=== PATIENT | male | born 1965 | race Caucasian/White ===

== ENCOUNTER 2020-01-23 15:20 | Emergency (ER) | payer OTHER, SELFPAY ==
--- NOTE | 2020-01-23 15:29 | ED.PSYCH ---
HPI - Psych General Chief Complaint: Psychiatric Symptoms <Henrique Pérez MD - Last Filed: 01/27/20 18:53> Stated Complaint: PSYCH <Henrique Pérez MD - Last Filed: 01/27/20 18:53> Time Seen by Provider: 01/23/20 15:22 <Henrique Pérez MD - Last Filed: 01/27/20 18:53> History of Present Illness HPI Narrative: Stopped by police for erratic driving. When they pulled him over he was behaving strangely and asked them to take him to [facility]. They thought that he needed to come in for a psychiatric evaluation. On my evaluation he is vague and withdrawn. When asked about complaints he says only life . denies any physical complaints. Will no answer about suicidal thoughts. <Henrique Pérez MD - Last Filed: 01/27/20 18:53> Related Data Home Medications: Home Medications Medication Instructions Recorded Confirmed No Home Medications 01/23/20 01/23/20 <Henrique Pérez MD - Last Filed: 01/27/20 18:53> Allergies/Adverse Reactions: Allergies Allergy/AdvReac Type Severity Reaction Status Date / Time No Known Allergies Allergy Verified 01/23/20 15:30 <Henrique Pérez MD - Last Filed: 01/27/20 18:53> Review of Systems Review of Systems: All systems reviewed & are unremarkable except as noted in HPI and below <Henrique Pérez MD - Last Filed: 01/27/20 18:53> Constitutional: Constitutional: Denies fever(s) <Henrique Pérez MD - Last Filed: 01/27/20 18:53> Cardiovascular: Cardiovascular: Denies chest pain <Henrique Pérez MD - Last Filed: 01/27/20 18:53> Respiratory: Respiratory: Denies dyspnea <Henrique Pérez MD - Last Filed: 01/27/20 18:53> Gastrointestinal: Gastrointestinal: Denies abdominal pain and Denies nausea <Henrique Pérez MD - Last Filed: 01/27/20 18:53> Neurologic: Denies weakness <Henrique Pérez MD - Last Filed: 01/27/20 18:53> [facility] Social History Social History: Social History Gender identity (if verbalized by the patient): Male <Henrique Pérez MD - Last Filed: 01/27/20 18:53> Exam Const: General: healthy appearing, no acute distress and alert <Henrique Pérez MD - Last Filed: 01/27/20 18:53> Orientation/consciousness: patient oriented x3 <Henrique Pérez MD - Last Filed: 01/27/20 18:53> HENMT: Head: normal to inspection <Henrique Pérez MD - Last Filed: 01/27/20 18:53> Neck: Neck: normal visual inspection and no lymphadenopathy <Henrique Pérez MD - Last Filed: 01/27/20 18:53> Chest: Chest palpation & inspection: no tenderness <Henrique Pérez MD - Last Filed: 01/27/20 18:53> Resp: Effort & Inspection: normal respiratory effort <Henrique Pérez MD - Last Filed: 01/27/20 18:53> Auscultation: clear to auscultation bilaterally, no rales, no rhonchi and no wheezes <Henrique Pérez MD - Last Filed: 01/27/20 18:53> Cardio: Jugular venous distension: no JVD <Henrique Pérez MD - Last Filed: 01/27/20 18:53> Rate: regular rate <Henrique Pérez MD - Last Filed: 01/27/20 18:53> Rhythm: regular rhythm <Henrique Pérez MD - Last Filed: 01/27/20 18:53> Heart sounds: no murmurs <Henrique Pérez MD - Last Filed: 01/27/20 18:53> GI: Inspection: non-distended <Henrique Pérez MD - Last Filed: 01/27/20 18:53> GI Palp: Yes Soft to palpation and No Tenderness to palpation present (GI) <Henrique Pérez MD - Last Filed: 01/27/20 18:53> Skin: General skin exam: normal color <Henrique Pérez MD - Last Filed: 01/27/20 18:53> Neuro: General: patient oriented x3 and moves all extremities <Henrique Pérez MD - Last Filed: 01/27/20 18:53> Speech: normal speech <Henrique Pérez MD - Last Filed: 01/27/20 18:53> Extrem: General: no edema <Henrique Pérez MD - Last Filed: 01/27/20 18:53> Psych: Other: Withdrawn, flat affect <Henrique Pérez MD - Last Filed: 01/27/20 18:53>
[2020-01-23 15:30] VITALS: BP 146/88; PULSE 100; RESP 18; TEMP 36.8; O2SAT 96
[2020-01-23 15:52] LABS: Basophils Absolute Auto 0.1 K/mm3 (0.0-0.1); Basophils Percent Auto 0.6 % (0.2-1.2); Eosinophils Absolute Auto 0.1 K/mm3 (0-0.3); Eosinophils Percent Auto 0.7 % (0-4.4); Hematocrit 40.6 % (42.0-52.0); Immature Granulocyte Absolute 0.04 K/mm3 (0.00-0.031); Immature Granulocyte Percent A 0.5 % (0-0.5); Lymphocytes Absolute Auto 2.57 K/mm3 (0.9-3.2); Lymphocytes Percent Auto 30.5 % (18.3-44.2); Mean Corpuscular HGB Conc 34.5 g/dl (32-36); Mean Corpuscular Hemoglobin 30.2 pg (26-34); Mean Corpuscular Volume 87.7 fl (80-100); Mean Platelet Volume 9.3 fl (7.4-10.4); Monocytes Absolute Auto 0.5 K/mm3 (0.1-0.6); Monocytes Percent Auto 5.3 % (2.6-8.5); Neutrophils Absolute Auto 5.3 K/mm3 (1.3-6.7); Neutrophils Percent Auto 62.4 % (45.5-73.1); Platelet Count Result 222 k/mm3 (150-375); Red Blood Count 4.63 M/mm3 (4.6-6.20); Red Cell Distribution Width 12.8 % (11.5-14.5); White Blood Count 8.4 K/mm3 (4.5-10.0)
--- NOTE | 2020-01-23 15:57 | PC.NURSE ---
dietary contacted for tray.
[2020-01-23 16:03] LABS: Ethanol < 10 mg/dL (<10)
[2020-01-23 16:04] LABS: Alanine Aminotransferase 35 U/L (4-50); Albumin Level 4.6 g/dL (3.5-5.1); Alkaline Phosphatase 91 U/L (38-126); Anion Gap 8 mmol/L (8-16); Aspartate Amino Transferase 33 U/L (17-59); Bilirubin,Total 0.8 mg/dL (0.2-1.3); Blood Urea Nitrogen 19 mg/dL (9-20); Calcium 8.9 mg/dL (8.4-10.2); Carbon Dioxide 27 mmol/L (22-30); Chloride 103 mmol/L (98-107); Estimated CRCL calculation 96 ml/min; Estimated Glomerular Filt Rate > 60; Glucose 116 mg/dL (75-110); Potassium 3.2 mmol/L (3.4-5.0); Sodium 138 mmol/L (137-145)
[2020-01-23 16:34] LABS: Thyroid Stimulating Hormone 0.873 uIU/mL (0.465-4.680)
[2020-01-23 17:07] LABS: Troponin I < 0.012 ng/mL (0.000-0.034)
[2020-01-23 17:09] LABS: Amphetamine Screen Urine Negative (Negative); Barbiturate Screen Urine Negative (Negative); Benzodiazepines Screen Urine Negative (Negative); Cocaine Screen Urine Negative (Negative); Methadone Screen Urine Negative (Negative); Opiate Screen Urine Negative (Negative); Phencyclidine Screen Urine Negative (Negative)
--- NOTE | 2020-01-23 18:01 | PC.NURSE ---
1645 Pt. gave urine sample, urine was unreceived because Pt. used water as their urine. Pt. urine was clear at that time. 1715 Pt. was offered multiple times to give urine sample in room with a witness. Pt attempted and was unsuccessful. Pt. was warned about being straight cathed. Pt. stated I do not want to be catheterized, I will scream and fight . EDP aware of Pt. comments, urine is still needed due to patient behavior 1730 Pt. was straight cathed with cooperation and allowed staff to do so. Pt. urine was yellow.
--- NOTE | 2020-01-23 18:56 | PC.NURSE ---
Pt. took off their glasses and broke them in half. Staff took them away from Pt. and placed them with his belongings.
[2020-01-23 19:19] LABS: Cannabinoid Screen Urine Positive (Negative)
--- NOTE | 2020-01-23 19:19 | PC.NURSE ---
report received at this time. pt resting on stretcher in NAD. sitter remains at bedside. this RN introduced self to pt, pt closed eyes and is mute.
[2020-01-23 19:49] LABS: Add Urine Microscopic? YES; Appearance Urine Clear (Clear); Bilirubin Urine Negative (Negative); Blood Urine Negative (Negative); Color Urine Yellow (Yellow); Glucose Urine UA Negative (Negative); Ketones Urine Trace mg/dL (Negative); Leukocyte Esterase Ur Negative LEU/UL (Negative); Nitrate Urine Negative (Negative); Protein Urine Negative (Negative); Specific Grav Ur 1.026 (1.001-1.035)
--- NOTE | 2020-01-23 21:27 | PC.NURSE ---
Per Crisis, here to eval. patient . He refused to speak with her. The crisis rep stated if patient wants to talk call her back.
--- NOTE | 2020-01-23 21:35 | PC.NURSE ---
this RN to bedside. pt states, I just want to sleep. pt states he felt safe where he lived, denies SI/HI. pt repetitively stating I just want to go back to bed. this RN told pt he needed to speak with crisis to develop a poc, pt states I will in the morning. aware.
--- NOTE | 2020-01-23 23:04 | PC.NURSE ---
pt continues to sleep on stretcher. this RN to bedside to attempt to wake pt up. pt continues to refuse to talk to this RN. pt states, I'm tired I haven't got enough sleep yet. MD mac
--- NOTE | 2020-01-23 23:39 | PC.NURSE ---
this RN to room to speak with pt. pt stating at this time that he is willing to speak to crisis. this RN verified with pt x3, pt continuously states yes . crisis called at this time.
--- NOTE | 2020-01-24 02:46 | PC.NURSE ---
pt continues to sleep on stretcher in NAD
[2020-01-24 04:05] VITALS: BP 120/81; PULSE 84; RESP 17; O2SAT 100
[2020-01-24 07:30] VITALS: BP 141/88; PULSE 75; RESP 16; TEMP 36.7; O2SAT 97
[2020-01-24 11:00] VITALS: BP 105/71; PULSE 76; RESP 16; TEMP 36.6; O2SAT 96
== END 2020-01-24 11:00 ==
PROVIDERS: Emergency Medicine; Emergency Provider Emergency Medicine
DX: F32.9 Major depressive disorder, single episode, unspecified (principal)
CPT/HCPCS: 36415; 51701; 80053; 80307; 81001; 84443; 84484; 85025; 93005; 99284